=== PATIENT | female | born 1965 | race Caucasian/White ===

== ENCOUNTER → 2016-07-07 | Outpatient (CLI) | payer BC ==
[2016-07-07 06:45] LABS: HEMOGLOBIN 14.6 gm/dl (12.3-15.3); RED BLOOD COUNT 4.34 M/UL (4.00-5.10); WHITE BLOOD COUNT 7.4 K/UL (4.5-11.0)
== END ==
LOC: LAB 06:12
PROVIDERS: Physician Assistant
DX: E03.9 Hypothyroidism, unspecified (principal); R53.83 Other fatigue
CPT/HCPCS: 36415; 84439; 84443; 85025

== ENCOUNTER → 2016-08-16 | Outpatient (CLI) | payer BC ==
[2016-08-16 07:11] LABS: HEMOGLOBIN 14.9 gm/dl (12.3-15.3); RED BLOOD COUNT 4.43 M/UL (4.00-5.10); WHITE BLOOD COUNT 6.9 K/UL (4.5-11.0)
[2016-08-16 07:48] LABS: BUN/CREATININE RATIO 19 (0-10)
== END ==
LOC: LAB 06:44
PROVIDERS: Internal Medicine
DX: E03.9 Hypothyroidism, unspecified (principal); M85.80 Other specified disorders of bone density and structure, unspecified site; R73.09 Other abnormal glucose
CPT/HCPCS: 36415; 80048; 80061; 80076; 82607; 83036; 84439; 84443; 85025

== ENCOUNTER → 2020-05-21 | Outpatient (CLI) | payer BC, OTHER ==
[2020-05-21 05:58] LABS: HEMOGLOBIN 15.1 gm/dl (12.3-15.3); RED BLOOD COUNT 4.51 M/UL (4.00-5.10); WHITE BLOOD COUNT 10.2 K/UL (4.5-11.0)
[2020-05-21 06:12] LABS: BUN/CREATININE RATIO 15 (0-10)
== END ==
LOC: LAB 05:32
PROVIDERS: Internal Medicine
DX: R53.83 Other fatigue (principal); R73.03 Prediabetes; E03.9 Hypothyroidism, unspecified
CPT/HCPCS: 36415; 80048; 80061; 84439; 84443; 85025

== ENCOUNTER → 2020-08-19 | Outpatient (CLI) | payer BC, OTHER | LOC: LAB 05:45 | DX: E03.9 Hypothyroidism, unspecified (principal) | CPT/HCPCS: 36415; 84443 ==

== ENCOUNTER → 2020-12-03 | Outpatient (CLI) | payer BC ==
[2020-12-03 06:24] LABS: HEMOGLOBIN 13.3 gm/dl (12.3-15.3); RED BLOOD COUNT 3.99 M/UL (4.00-5.10); WHITE BLOOD COUNT 6.6 K/UL (4.5-11.0)
[2020-12-03 06:41] LABS: BUN/CREATININE RATIO 14 (0-10)
== END ==
LOC: LAB 05:36
PROVIDERS: Internal Medicine
DX: E03.9 Hypothyroidism, unspecified (principal); R53.83 Other fatigue; R73.03 Prediabetes
CPT/HCPCS: 36415; 80048; 80061; 80076; 82607; 84439; 84443; 85025

== ENCOUNTER → 2020-12-26 | Outpatient (CLI) | payer OTHER | LOC: EROP 17:24 | DX: Z20.822 Contact with and (suspected) exposure to COVID-19 (principal) | CPT/HCPCS: U0002 ==

== ENCOUNTER → 2021-02-18 | Outpatient (CLI) | payer BC | LOC: MAMO 08:30 | DX: Z12.31 Encounter for screening mammogram for malignant neoplasm of breast (principal) | CPT/HCPCS: 77063; 77067 ==

== ENCOUNTER → 2021-05-26 | Outpatient (CLI) | payer BC ==
[2021-05-26 06:49] LABS: HEMOGLOBIN 14.3 gm/dl (12.3-15.3); RED BLOOD COUNT 4.48 M/UL (4.00-5.10); WHITE BLOOD COUNT 6.1 K/UL (4.5-11.0)
== END ==
LOC: LAB 06:26
PROVIDERS: Internal Medicine
DX: E03.9 Hypothyroidism, unspecified (principal); K21.9 Gastro-esophageal reflux disease without esophagitis; R73.03 Prediabetes; Z00.00 Encounter for general adult medical examination without abnormal findings
CPT/HCPCS: 80048; 80061; 80076; 82607; 83036; 84439; 84443; 85025

== ENCOUNTER → 2021-09-16 | Outpatient (CLI) | payer BC ==
[2021-09-16 06:06] LABS: HEMOGLOBIN 14.4 gm/dl (12.3-15.3); RED BLOOD COUNT 4.37 M/UL (4.00-5.10); WHITE BLOOD COUNT 7.4 K/UL (4.5-11.0)
== END ==
LOC: LAB 05:34
PROVIDERS: Internal Medicine
DX: E03.9 Hypothyroidism, unspecified (principal)
CPT/HCPCS: 80048; 80061; 80076; 84443; 85025

== ENCOUNTER → 2021-10-12 | Outpatient (CLI) | payer BC | LOC: OPSV 13:53 | DX: M81.0 Age-related osteoporosis without current pathological fracture (principal) | CPT/HCPCS: 96365; J3489 ==

== ENCOUNTER → 2021-10-19 | Outpatient (CLI) | payer BC | LOC: LAB 05:55 | DX: E03.9 Hypothyroidism, unspecified (principal) | CPT/HCPCS: 84443 ==